=== PATIENT | male | born 1945 | race Caucasian/White ===

== ENCOUNTER 2019-03-25 06:41 | Outpatient (CLI) | payer MEDICARE, OTHER, SELFPAY ==
[2019-03-25 07:31] VITALS: BMI 25.5
--- NOTE | 2019-03-25 07:38 | ECG_ITS ---
NAME OF STUDY: EXERCISE SESTAMIBI STRESS TEST INDICATION: Palpitations, Coronary Artery Disease PROCEDURE: The baseline electrocardiogram showed normal sinus rhythm with normal ST-Ts. At the baseline, the patient's blood pressure was 131/66 mm Hg with a heart rate of 77. The patient exercised for 6 minutes and 21 seconds on a standard Vern protocol. Patient attained a maximum heart rate of 139 beats per minute(95 % of the maximum predicted heart rate) with a blood pressure at the peak exercise of 206/85 mm Hg. The EKG at the peak exercise revealed no significant changes. Patient did not have any chest pain or any significant arrhythmis with the exercise Sestamibi was injected 1 minute prior to the peak exercise During the recovery phase, there were no new changes. Blood pressure at the end of the recovery phase was 172/83 mm Hg with a heart rate of 76 per minute. CONCLUSION: 1. No significant EKG changes with the [treadmill exercise 2. No exercise-induced chest pain or cardiac arrhythmia. Hypertensive response to exercise 3. Fair exercise tolerance, attained a maximum of 10.2 METs 4. Sestamibi/Sestamibi perfusion results pending; see separate report. Electronically Signed On 03-26-2019 16:13:20 PROTECTION CONSULTANT by Kat Jean Baptiste M.D. [email or web address]
--- NOTE | 2019-03-25 07:39 | NMCV_ITS ---
NM katina perf SPECT r/s* [id number] Oneil Cutler Age: 74 Gender: M : 1945 Exam Date: 03/25/2019 08:19 Ordering Phys: Bj Enamorado MD Technologist: LUCIEN Lopez Exam Location: [facility] Indications: Palpitations, CAD STRESS TEST Please see separate stress test report in [facility] for full findings IMAGE PROTOCOL Rest/Stress 1 Exercise Day Radiopharmaceutical Dose (mCi) Administration Site Administered by Rest: Tc-99m 10.7 IV LUCIEN Lopez Sestamibi Stress:Tc-99m 32.6 IV LUCIEN Lopez Sestamibi Rest: 25-Mar-2019 60 Discovery 630 Stress: 25-Mar-2019 45 Discovery 630 Radiopharmaceutical was injected at 87% maximum heart rate. Images obtained in supine and prone position. SPECT RESULTS Technical Quality: Excellent Raw Data Analysis: Normal Image Corrections: No attenuation or motion correction applied Summed Stress Score: 1 Summed Rest Score: 1 Summed Difference Score: 1 PERFUSION FINDINGS A small area of decreased tracer uptake was noted in the mid inferolateral region with some reversibility. However with the prone imaging, there is uniform myocardial tracer uptake. FUNCTIONAL RESULTS (calculated via Gated SPECT) Stress Image LV EF (%): 56 Stress EDV (mL):94 TID: 0.75 Stress ESV (mL):41 FUNCTIONAL FINDINGS: Segmental wall motion analysis revealed mild hypokinesis of the LV apex. IMPRESSIONS 1. Myocardial perfusion imaging revealing a small area of reversible defect in the mid inferolateral region, suggestive of ischemia in the distribution of the left circumflex artery. However because of the inconsistency with the prone imaging, the reliability is questionable. 2. Normal LV ejection fraction 56%. 3. LV wall motion analysis revealing mild hypokinesia of the LV apex. 4. Normal LV volume. No similar previous studies are available for comparison Dr Kat Jean Baptiste MD [facility] (Electronically Signed) Final Date: 25 March 2019 15:19 S
--- NOTE | 2019-03-25 09:05 | SUR.PREOP ---
Patient reports no pain or discomfort prior to the start of the procedure.
[2019-03-25 09:20] VITALS: BP 172/83; PULSE 86
== END 2019-03-25 06:42 | disposition home or self-care (01) ==
LOC: RAD 06:47
PROVIDERS: Family Provider Family Medicine; PCP Family Medicine; Visit Provider Family Medicine
DX: R00.2 Palpitations (principal); I25.10 Atherosclerotic heart disease of native coronary artery without angina pectoris
CPT/HCPCS: 78452; 93017; A9500

== ENCOUNTER 2019-05-06 12:48 | Observation (INO) | payer MEDICARE, OTHER, SELFPAY ==
[2019-05-05 16:42] VITALS: BMI 26.6
[2019-05-06] VITALS (18 sets, daily range): BP systolic 119–160; BP diastolic 61–79; PULSE 40–51; RESP 8–20; TEMP 36.6–37; O2SAT 96–99; BMI 26.6
--- NOTE | 2019-05-06 11:00 | XACV_ITS ---
Exam Room: [facility] Ht: 178 cm Wt: 84 kg BSA: 2.05 m2 Gender: Male : 1945 Any Known Allergies: No known allergies Exam Priority: Routine Procedure(s): Procedure Description: Diagnostic procedure Procedure Description: Coronary Angiography Diagnostic Cath Status: Elective Diagnostic Findings Patient with previous coronary artery disease and a stent placed to the first obtuse marginal branch. Atypical chest pain as an outpatient. Stress testing suggested small area of ischemia in the circumflex. Patient requested angiography. Procedure done from the right radial artery. Angiography reveals wide patency of the previously placed stent. The circumflex is normal. The LAD is also normal with the exception of mild 20 to 30% stenosis in the mid to distal portion. The right is a dominant artery and is normal. PCI Status: Elective Conclusions Nonobstructive coronary artery disease with previously placed stent patent. Normal LV function. Interventional RX Recommendation: none Diagnostic RX Recommendation: none Anticoagulation: Heparin Ventriculography Ejection Fraction: 60.0 % Pressures Phase:Rest AO : 102 mmHg / 49 mmHg ( 72 mmHg ) @ 8:08:00 AM 108 mmHg / 48 mmHg ( 78 mmHg ) @ 8:13:00 AM 113 mmHg / 52 mmHg ( 77 mmHg ) @ 8:13:00 AM LV : 116 mmHg / -8 mmHg / @ 8:11:00 AM 109 mmHg / -8 mmHg / @ 8:12:00 AM 109 mmHg / -8 mmHg / @ 8:13:00 AM Valves Phase:DefaultPhase AV : 0.0 mmHg @ 1:32:05 PM 0.0 mmHg @ 1:32:05 PM Clinical Evaluation EBL: 5mL-10mL Procedural Details Procedure Consent Obtained. Pre-Procedure Time Out. Identified patient by full name and date of as verbalized by the patient/guarantor. Does the consent match the physician's order: Yes. Accurate & Complete Informed Consent: Yes. Inpatient/Outpatient History & Physical on Chart: Yes. If H&P is completed, is and addenduem needed: No; If yes, is the addendum complete: N/A. Visualize and Verify Site with Patient/Guarantor: N/A. Relevant Radiology Images available: Yes. Pre-op teaching completed and patient verbalized understanding. The risks, benefits, and alternatives of sedation and/or procedure were discussed by physician. The patient agrees to continue. Procedure started. Lab results not resulted at start of procedure. Dr. Allred aware and wants to proceed with case. Correct patient, site and procedure confirmed by cath team. Current diagnosis: Chest Pain. PERRLA. Strong, equal hand surgical first assistant bilaterally. Lungs clear x 5 lobes. IV Site on Arrival: 20 gauge in the left anticubital. IV Fluids: 0.9% NaCl at KVO. 0 mL infused prior to laborer construction or leak gang. Pre Procedural Pulses: bilateral dorsalis pedis was 1+. Pre Procedural Pulses: bilateral posterior tibial was 1+. Pre Procedural Pulses: bilateral radial was 3+. Oxygen started at 2liters/min via nasal canula. bilateral groins was prepped with chloroprep then draped in the usual sterile fashion. right radial was prepped with chloroprep then draped in the usual sterile fashion. Physician notified. Baseline sample Acquired. HR: 44 BPM. Physician arrived. Equipment: 6F - Radial. Cardiac Cath Pack. ACIST Manifold Kit Model BT 2000. Heparinized Saline (2 units/mL), 1000 mL bag. Physician scrubbed in. Immediate Pre-Procedure Time Out. Correct Patient: Yes; Correct Procedure: Yes; Correct Site: Yes; Correct Patient Position: Yes; Correct Supplies: Yes; Dried Flammable Prep: Yes; Blood Products Available: No;. Lidocaine 1% infiltrated to the right radial. Arterial access obtained. A 6 fijian TIG catheter in over wire. Multiple views taken of left coronary artery. Catheter redirected to the RCA. Multiple views taken of right coronary artery. Catheter out. A 6 fijian Angled Pig catheter in over wire. EDP Sample taken: LV 116/-9,21; HR: 51 BPM; SpO2: 94%. LV gram performed in ESPITIA @ 10 mL/second for a total of 30 mL. EDP Sample taken: LV 109/-9,16; HR: 68 BPM; SpO2: 93%. Pullback taken: LV 109/-9,16; AO 108/48(78); Mean: , Peak to Peak: 0mmHg, SEP: ; HR: 64 BPM; SpO2: 94%. Vital chart was stopped. Catheter out. TR band placed. Hemostasis obtained. A TR Band was successful obtaining hemostatsis at the Right Radial artery insertion site. Post Procedure: Pulses reassessed and unchanged. PERRLA. Strong, equal hand surgical first assistant bilaterally. No VTE prophylaxis required. Total IV fluids: 60.7 mL. Contrast type used: Visipaque 320 mgI/mL, 500 mL bottle. Post-op diagnosis: Chest Pain. Complications: None. Estimated blood loss: 5mL-10mL. Procedure completed. Patient transferred by wheelchair to 1st floor. Medication's Wasted: Lidocaine 1% = 18 mL. Medication's Wasted: Nitro = 49.8 mg. Medication's Wasted: Heparin = 1000 units. Medication's Wasted: Other = Versed 1 mg. Medication's Wasted: Other = Fentanyl mcg. [facility] Clinical Fraility Score: 2: Well. Mortgage Loan Officer Indications: Suspected CAD. Chest Pain Symptom Assessment: Non-anginal Chest Pain. Cardiovascular Instability: No. Site: Right Radial artery Sheath Size: 6 Fr Hemostasis Method: TR Band Hemostasis Success: Successful Procedure Medications Start: 12:51 PM Stop: 12:51 PM Medication: Versed Amount: 1 mg Route: I.V. Start: 12:51 PM Stop: 12:51 PM Medication: Fentanyl Amount: 50 mcg Route: I.V. Start: 1:04 PM Stop: 1:04 PM Medication: Verapamil Amount: 5 mg Route: I.A. Start: 1:04 PM Stop: 1:04 PM Medication: Nitrogylcerin Amount: 200 mcg Route: I.A. Start: 1:05 PM Stop: 1:05 PM Medication: Heparin Amount: 5000 units Route: I.V. I, the attending physician, have reviewed and verified all procedure medications. Yes, all medications given per verbal order History/Risk Factors Dyslipidemia: No Diabetic Therapy: Oral Peripheral Arterial Disease (PAD): No Myocardial Infarction (PR): Yes Obesity: No Renal Disease: No Tobacco Use: Never Prior Interventions PCI: Yes CABG: No Valve Surgery: No Report Signatures Finalized by:Dr. Macario Allred MD on 05/06/2019 1:45:36 PM
[2019-05-06] MEDS: diphenhydrAMINE 50 mg Capsule PO (12:14)
[2019-05-06 12:55] LABS: Basophils # 0.1 10^3/uL (0.0-0.1); Basophils % 0.9 %; Eosinophils # 0.1 10^3/uL (0.0-0.8); Eosinophils % 1.8 %; Hematocrit 42.7 % (42.0-52.0); Lymphocytes # 3.2 10^3/uL (0.8-4.8); Mean Corpuscular HGB Conc 32.8 g/dL (30.0-36.0); Mean Corpuscular Hemoglobin 30.2 pg (28.0-34.0); Mean Platelet Volume 10.6 fL (7.4-10.4); Monocytes # 0.7 10^3/uL (0.2-0.9); Monocytes % 8.6 %; Neutrophils # 3.6 10^3/uL (1.8-7.7); Neutrophils % 46.9 %; Nucleated Red Blood Cells % 0 %; Platelet Count 119 10^3/cmm (130-400); Red Blood Count 4.64 10^6/uL (4.1-5.3); Red Cell Distribution Width 13.1 % (12.1-15.1); White Blood Count 7.7 10^3/uL (4.0-10.0)
[2019-05-06 13:05] LABS: Anion Gap 11.2 (5-19); Blood Urea Nitrogen 22 mg/dL (8-23); Calcium 9.2 mg/dL (8.5-10.5); Carbon Dioxide 29 mmol/L (22-29); Chloride 106 mmol/L (98-107); Glucose 125 mg/dL (65-115); Osmolality Calculated 292 mOsm/kg (285-295); Potassium 4.2 mmol/L (3.5-5.1); Sodium 142 mmol/L (136-145)
[2019-05-06] MEDS: sodium chloride 0.9% 1,000 ML 125 ML IV (14:20)
--- NOTE | 2019-05-06 16:47 | PC.NURSE ---
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
== END 2019-05-06 18:33 | disposition home or self-care (01) | DRG 287 ==
LOC: ICU 12:49 → CSU 14:50
PROVIDERS: Admitting Provider Internal Medicine Cardiovascular Disease; Family Provider Family Medicine; PCP Family Medicine; Visit Provider Internal Medicine Cardiovascular Disease
DX: I25.10 Atherosclerotic heart disease of native coronary artery without angina pectoris (principal); Z95.5 Presence of coronary angioplasty implant and graft; Z79.82 Long term (current) use of aspirin; Z79.84 Long term (current) use of oral hypoglycemic drugs; E11.9 Type 2 diabetes mellitus without complications; E78.5 Hyperlipidemia, unspecified; I10 Essential (primary) hypertension; I25.2 Old myocardial infarction
CPT/HCPCS: 36415; 80048; 85025; 93452; C1769; C1887; C1894; G0378; J1644; J2001; J2250; J3010; J3490; J7030; Q0163; Q9967

== ENCOUNTER 2020-06-27 15:11 | Outpatient (CLI) | payer MEDICARE, OTHER, SELFPAY ==
--- NOTE | 2020-06-27 15:23 | CT_ITS ---
WS: [id number] CT HEAD WITH AND WITHOUT CONTRAST HISTORY: HEADACHE, ATYPICAL TECHNIQUE: Noncontrast 2.5 mm axial images obtained from the vertex to the skull base. Additional avni ging performed at 2.5 mm axial images status post IV contrast. Bone and soft tissue windows are revie wed. All CT scans at [facility] use at least one of these dose optimization techniques: a utomated exposure control; mA and/or kV adjustment per patient size (includes targeted exams where do se is matched to clinical indication); or iterative reconstruction. CONTRAST: Visipaque 320; 95 mL IV. DLP: 1851.82 mGycm COMPARISON: 10/04/2018 No acute intracranial hemorrhage, edema or midline shift. Mild atrophy and chronic ischemic disease. No prior infarcts. There is a tiny lacunar infarct in the anterior LEFT thalamus which was present on the prior study. Posterior fossa is negative. No enhancing mass or vascular malformations identified. Dural venous sinuses are normally enhancing. Arachnoid granulation in the far lateral LEFT transverse sinus. No occlusions. Mild tortuosity of the distal vertebral arteries. Mild atherosclerotic plaque through the intracranial carotid arteries. Paranasal sinuses as visualized: Clear. Mastoid air cells: Clear. Calvarium and scalp: Intact. CT/CT head wo/w con [id number] IMPRESSION: 1. No acute intracranial hemorrhage or edema. 2. Mild atrophy. 3. No enhancing masses or vascular malformations.
[2020-06-27 15:45] LABS: Blood Urea Nitrogen 26 mg/dL (8-23)
[2020-06-27] MEDS: iodixanol 320 mg/mL 100mL Btl IV (15:59)
== END 2020-06-27 15:12 | disposition home or self-care (01) ==
PROVIDERS: Family Provider Family Medicine; PCP Family Medicine; Visit Provider Family Medicine
DX: R51.9 Headache, unspecified (principal); G31.9 Degenerative disease of nervous system, unspecified
CPT/HCPCS: 70470; 82565; 84520; Q9967

== ENCOUNTER → 2022-09-03 10:42 | Outpatient (BNVA) | payer MEDICARE, OTHER, SELFPAY | PROVIDERS: Family Provider Family Medicine; PCP Family Medicine; Visit Provider Family Medicine | DX: I10 Essential (primary) hypertension (principal); E78.5 Hyperlipidemia, unspecified; E11.9 Type 2 diabetes mellitus without complications; I25.10 Atherosclerotic heart disease of native coronary artery without angina pectoris | CPT/HCPCS: 80053; 80061; 83036; 85025 ==

== ENCOUNTER → 2023-01-29 13:44 | Outpatient (BNVA) | payer MEDICARE, OTHER, SELFPAY | PROVIDERS: Family Provider Family Medicine; PCP Family Medicine; Visit Provider Family Medicine | DX: R59.1 Generalized enlarged lymph nodes (principal) | CPT/HCPCS: 85025; 85651; 86140 ==

== ENCOUNTER 2023-02-09 06:46 | Outpatient (CLI) | payer MEDICARE, OTHER, SELFPAY ==
--- NOTE | 2023-02-09 07:00 | CTR_ITS ---
PROCEDURE INFORMATION: Exam: CT Neck With Contrast Exam date and time: 02/09/2023 7:32 AM Age: 78 years old Clinical indication: Mass, lump, or swelling in neck; Patient HX: Left sided enlarged node/mass x 1-2 weeks. PT C/O pain in left side of neck where mass is located. Bb placed; Additional info: Left sided enlarged node/ mass TECHNIQUE: Imaging protocol: Computed tomography of the neck with contrast. Radiation optimization: All CT scans at this facility use at least one of these dose optimization techniques: automated exposure control; mA and/or kV adjustment per patient size (includes targeted exams where dose is matched to clinical indication); or iterative reconstruction. Contrast material: OMNI 350; Contrast volume: 95 ml; Contrast route: INTRAVENOUS (IV); REPORTING DATA: Count of CT and Cardiac NM exams in prior 12 months: This patient has received 0 known CTs and 0 known cardiac nuclear medicine studies in the 12 months prior to the current study. COMPARISON: CT neck w con* [id number] 03/10/2017 11:31 AM RADIATION DOSE METRICS: Total DLP (mGy-cm): 169.1 FINDINGS: Pharynx: Unremarkable. No significant tonsillar enlargement. Larynx: Unremarkable. Epiglottis is normal. Prevertebral and retropharyngeal spaces: Unremarkable. 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 This was present on CT from 03/10 2017. Thyroid: Normal. No enlarged or calcified nodules. Lymph nodes: Unremarkable. No lymphadenopathy. Trachea: Visualized trachea is unremarkable. Lungs: Unremarkable as visualized. Bones/joints: Multilevel cervical spondylosis with mild stenosis C3-C4, C5-C6, C6-C7. Vasculature: A mixture of calcified and soft plaque in proximal internal carotid arteries bilaterally with 50-60% stenosis bilaterally. This has mildly increased in comparison to the prior study. Calcified plaque producing mild narrowing of the proximal cerebral arteries bilaterally. Soft tissues: No definite abnormality in the left neck subjacent to the skin marker. CT/CT neck w con* [id number] IMPRESSION: 1. 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 This was present on CT from 03/10 2017. 2. A mixture of calcified and soft plaque in proximal internal carotid arteries bilaterally with 50-60% stenosis bilaterally. This has mildly increased in comparison to the prior study. 3. No definite abnormality in the left neck subjacent to the skin marker. 4. Calcified plaque producing mild narrowing of the proximal cerebral arteries bilaterally.
[2023-02-09] MEDS: iohexol 350 mg/mL 500 mL Btl (per mL) IV (07:40)
[2023-02-09 07:41] LABS: Blood Urea Nitrogen 17 mg/dL (8-23)
== END 2023-02-09 06:47 | disposition home or self-care (01) ==
LOC: RAD 06:47
PROVIDERS: Family Provider Family Medicine; PCP Family Medicine; Visit Provider Family Medicine
DX: R59.1 Generalized enlarged lymph nodes (principal); K11.8 Other diseases of salivary glands; I65.23 Occlusion and stenosis of bilateral carotid arteries; I67.2 Cerebral atherosclerosis
CPT/HCPCS: 70491; 82565; 84520; Q9967